=== PATIENT | female | born 1950 | race Asian ===

== ENCOUNTER → 2017-04-15 | Outpatient (CLI) | payer BC ==
[~2017-04-15] MED LIST: BENZONATATE PO; NO MEDICATIONS; PANTOPRAZOLE SO40 MG PO; PHENERGAN PO; ZITHROMAX PO
--- NOTE | ~2017-04-15 | CR63 ---
[facility] A Service of [facility] RADIOLOGY TEXT RESULTS PATIENT: ROXI MURILLO LOCATION: [facility] : 46 UNIT #: [id number] AGE: [address]: Frances Murillo MD SEX: F ORDER DR: [id number] [facility] [address] [place], [place] [address] [id number] MR#: [id number] Acc #: [id number] NAME: ROXI MURILLO : 1950 SEX: F STUDY DATE/TIME: 04/15/2017 10:51 UNIT: [facility] ROOM: STUDY DESCRIPTION: CR Chest 2 View Attending Physician: Frances Murillo M.D. Ordering Physician: Frances Murillo M.D. Primary Care Physician: Frances Murillo M.D. MEDICAL IMAGING REPORT This report is preliminary unless electronic signature is present EXAM Chest 2 views 04/15/2017 1051 hours HISTORY A 66-year-old with 1-week history of cough, shortness of air and congestion, diagnosis of bronchitis. COMPARISON 01/11/2017 FINDINGS Upright PA and lateral views of the chest demonstrate normal cardiac, mediastinal and hilar contours. The lungs are well expanded. There is minimal reticular change in the lateral right midlung and along the left heart border where the patient has had parenchymal density previously. This is most likely scarring, although residual infection cannot be excluded. There is no pleural effusion or pneumothorax. IMPRESSION There is stable reticulonodular change in the lateral right mid lung and along the left heart border similar to prior exams most likely representing scarring from previous infection. There is no definite acute infection. No effusions seen. Dictated by... Sarahi Hurt M.D. THIS IS AN ELECTRONICALLY VERIFIED REPORT Sarahi Hurt M.D. at 04/15/2017 2:28 PM [email or web address] [facility] A Service of [facility] RADIOLOGY TEXT RESULTS PATIENT: [facility]OX[facility]ILL[id number] : 46 UNIT #: [id number] AGE: [address]: Frances Murillo MD SEX: F ORDER DR: TD: 04/15/2017 14:10 JOB #: [id number] MEDICAL IMAGING REPORT Page 1 of 1 COPY
== END | disposition home or self-care (01) ==
LOC: CRAD 10:34
DX: J20.9 Acute bronchitis, unspecified (principal); R91.8 Other nonspecific abnormal finding of lung field
CPT/HCPCS: 71020